=== PATIENT | female | born 1990 | race Caucasian/White ===

== ENCOUNTER → 2016-11-28 | Outpatient (CLI) | payer OTHER ==
[2016-11-28 14:37] LABS: BASO # 0.1 K/mm3 (0.0-0.2); BASO % 0.9 % (0.0-1.0); EOS # 0.1 K/mm3 (0.0-0.50); EOS % 1.2 % (0.0-3.0); LARGE UNSTAINED CELL # 0.1 K/mm3 (0.0-0.4); LARGE UNSTAINED CELL % 1.7 % (0.0-4.0); LYMPH # 1.8 K/mm3 (1.5-6.5); LYMPH % 26.8 % (24.0-44.0); MEAN CORPUSCULAR HEMOGLOBIN 30.4 pg (27.0-33.0); MEAN CORPUSCULAR HGB CONC 33.5 g/dl (32.0-36.5); MEAN CORPUSCULAR VOLUME 90.7 fl (80.0-96.0); MONO # 0.3 K/mm3 (0.0-0.8); MONO % 4.8 % (0.0-5.0); NEUTROPHILS # 4.4 K/mm3 (1.8-7.7); NEUTROPHILS % 64.6 % (36.0-66.0); PLATELET COUNT, AUTOMATED 288 k/mm3 (150-450); RED CELL DISTRIBUTION WIDTH 12.3 % (11.5-14.5); WHITE BLOOD COUNT 6.7 K/mm3 (4.0-10.0)
[2016-11-28 15:10] LABS: ALBUMIN 3.9 GM/DL (3.2-5.2); ALBUMIN/GLOBULIN RATIO 1.18 (1.00-1.93); ALKALINE PHOSPHATASE 88 U/L (45-117); ALT/SGPT 27 U/L (12-78); ANION GAP 8 MEQ/L (8-16); AST/SGOT 15 U/L (15-37); BILIRUBIN,TOTAL 0.6 MG/DL (0.2-1.0); BLOOD UREA NITROGEN 12 MG/DL (7-18); CALCIUM LEVEL 9.3 MG/DL (8.5-10.1); CARBON DIOXIDE LEVEL 27 MEQ/L (21-32); CHLORIDE LEVEL 106 MEQ/L (98-107); GLOMERULAR FILTRATION RATE > 60.0 (>60); GLUCOSE, FASTING 85 MG/DL (70-105); POTASSIUM SERUM 4.8 MEQ/L (3.5-5.1); SODIUM LEVEL 141 MEQ/L (136-145); TOTAL PROTEIN 7.2 GM/DL (6.4-8.2)
== END ==
LOC: M LRY 11:28
PROVIDERS: ATTEND Family Medicine
DX: N20.0 Calculus of kidney (principal)

== ENCOUNTER → 2017-01-05 | Outpatient (REF) | payer OTHER ==
[2017-01-05 19:46] LABS: CONTROL LINE UCG INT CTR LINE PRESENT
== END ==
LOC: M SMT 17:20
PROVIDERS: ATTEND Nurse Practitioner Family
DX: R10.9 Unspecified abdominal pain (principal)

== ENCOUNTER → 2017-01-16 | Outpatient (CLI) | payer OTHER ==
--- NOTE | 2017-01-16 23:15 | REP ---
Clinical: Left flank pain. Comparison: None. Findings: Evaluation of the urinary tract system demonstrates eight 2 mm nonobstructing right renal calculus and 1 mm nonobstructing left renal calculus without evidence for hydroureteronephrosis or perinephric stranding. A small extra renal pelvis to the left kidney is suggested. No obvious cystic or mass lesions are appreciated. The bilateral ureters are normal caliber and without obstructing calculus. The bladder is relatively collapsed but normal in appearance. Liver, spleen, pancreas, gallbladder, and bilateral adrenal glands are normal for noncontrast evaluation. The enteric system is without obstruction or acute inflammatory process and a normal terminal ileum and appendix are identified in the right lower quadrant. Pelvis demonstrates collapsed normal bladder and age-appropriate uterus. The ovaries demonstrate bilateral cysts/follicles measuring up to 2.9 cm in the left ovary and 2.4 cm in the right ovary which may be related to patient's symptoms. No pelvic fluid or ascites. No free air. No obvious adenopathy. Dominant noted without aneurysm. Musculoskeletal structures are intact. Impression: 1. There are 2 mm nonobstructing right and 1 mm nonobstructing left renal calculi without further evidence for obstructive uropathy or urinary tract pathology by noncontrast evaluation. 2. Bilateral ovarian cysts measuring up to 2.9 cm in left ovary are likely physiologic, but possibly related to patient's symptoms. Signed by Rinku Maria MD 01/16/2017 11:06 P
== END ==
LOC: M RAD 17:09
PROVIDERS: ATTEND Nurse Practitioner Family
DX: R10.9 Unspecified abdominal pain (principal)

== ENCOUNTER → 2018-01-21 | Outpatient (REF) | payer OTHER | LOC: M SFHCLERA 01-22 11:54 | DX: R30.0 Dysuria (principal) ==

== ENCOUNTER 2018-03-24 11:01 | Outpatient (CLI) | payer OTHER ==
[2018-03-24 12:14] LABS: HEMATOCRIT 33.4 % (36.0-47.0); HEMOGLOBIN 11.8 g/dl (12.0-15.5); MEAN CORPUSCULAR HEMOGLOBIN 31.1 pg (27.0-33.0); MEAN CORPUSCULAR HGB CONC 35.3 g/dl (32.0-36.5); MEAN CORPUSCULAR VOLUME 88.1 fl (80.0-96.0); PLATELET COUNT, AUTOMATED 271 10^3/uL (150-450); RED BLOOD COUNT 3.79 10^6/uL (4.00-5.40); RED CELL DISTRIBUTION WIDTH 13.2 % (11.5-14.5); WHITE BLOOD COUNT 14.4 10^3/uL (4.0-10.0)
[2018-03-24 12:23] LABS: TOTAL PROTEIN,RANDOM URINE 24.6 MG/DL (0.0-12.0)
[2018-03-24 12:44] LABS: ALBUMIN 2.3 GM/DL (3.2-5.2); ALBUMIN/GLOBULIN RATIO 0.68 (1.00-1.93); ALKALINE PHOSPHATASE 169 U/L (45-117); ALT/SGPT 17 U/L (12-78); ANION GAP 9 MEQ/L (8-16); AST/SGOT 14 U/L (7-37); BILIRUBIN,TOTAL 0.3 MG/DL (0.2-1.0); BLOOD UREA NITROGEN 6 MG/DL (7-18); CALCIUM LEVEL 8.1 MG/DL (8.5-10.1); CARBON DIOXIDE LEVEL 26 MEQ/L (21-32); CHLORIDE LEVEL 108 MEQ/L (98-107); CREATININE FOR GFR 0.79 MG/DL (0.55-1.30); GLOMERULAR FILTRATION RATE > 60.0 (>60); GLUCOSE, FASTING 110 MG/DL (70-100); LDH LACTATE DEHYDROGENASE 209 U/L (84-246); POTASSIUM SERUM 3.3 MEQ/L (3.5-5.1); SODIUM LEVEL 143 MEQ/L (136-145); TOTAL PROTEIN 5.7 GM/DL (6.4-8.2); URIC ACID 6.5 MG/DL (2.6-6.0)
== END 2018-03-24 12:53 | disposition home or self-care (01) ==
LOC: M LDO 11:01
DX: O26.893 Other specified pregnancy related conditions, third trimester (principal); Z3A.41 41 weeks gestation of pregnancy
CPT/HCPCS: 59025

== ENCOUNTER 2018-03-24 19:14 | Inpatient (IN) | payer OTHER ==
[2018-03-24] MEDS: LR 1,000 ML IV (20:13)
[2018-03-24 20:29] LABS: HEMATOCRIT 36.2 % (36.0-47.0); HEMOGLOBIN 12.6 g/dl (12.0-15.5); MEAN CORPUSCULAR HGB CONC 34.8 g/dl (32.0-36.5); MEAN CORPUSCULAR VOLUME 89.2 fl (80.0-96.0); PLATELET COUNT, AUTOMATED 282 10^3/uL (150-450); RED BLOOD COUNT 4.06 10^6/uL (4.00-5.40); RED CELL DISTRIBUTION WIDTH 13.2 % (11.5-14.5); WHITE BLOOD COUNT 16.4 10^3/uL (4.0-10.0)
[2018-03-24] MEDS: hydroCHLOROthiazide 25 MG TAB PO (21:05)
[2018-03-24] MEDS ORDERED: FENTANYL 2MCG/ML ROPIVACAINE 0.2% IN 0.9% NACL 200ML IVBAG As Ordered (21:27)
[2018-03-24] MEDS: LACTATED RINGER'S 1000 ML IV (22:35)
[2018-03-24] MEDS ORDERED: FENTANYL/ROPIVACAINE/NACL BAG 200 ML EPIDURAL (23:15)
[2018-03-24] MEDS ORDERED: NALOXONE INJ 0.4 MG/1 ML VIAL (J2310) IV (23:15)
[2018-03-24] MEDS ORDERED: EPIDURAL/PCA KEYS XX (23:15)
[2018-03-24] MEDS ORDERED: ePHEDrine SULFATE 25 MG/5 ML(5MG/ML) SYRINGE IV (23:15)
[2018-03-24] MEDS ORDERED: ONDANSETRON 4MG/2ML VIAL (J2405) IV (23:15)
[2018-03-24] MEDS ORDERED: diphenhydrAMINE INJ 50MG/ML VIAL (J1200) IV (23:15)
[2018-03-24] MEDS ORDERED: EPIDURAL COMMENT XX (23:15)
[2018-03-24] MEDS ORDERED: LACTATED RINGER'S 1000 ML IV (23:15)
[2018-03-24] MEDS ORDERED: REFRIGERATOR IV KEYS XX (23:15)
[2018-03-24] MEDS ORDERED: OXYTOCIN 30 UNITS IN 0.9% NaCl 500ML IV BAG (J2590) As Ordered (23:39)
[2018-03-25 01:55] LABS: CORD GAS ABE A -0.5; CORD GAS O2 SAT A 20.7 %; CORD GAS PCO2 A 62.2 mmHg; CORD GAS PH A 7.272 UNITS; CORD GAS PO2 A 13.5 mmHg; CORD GAS SBC A 22.1 MEQ/L
[2018-03-25 01:56] LABS: CORD GAS HCO3 V 21.8 MEQ/L; CORD GAS O2 SAT V 72.2 %; CORD GAS PCO2 V 38.7 mmHg; CORD GAS PH V 7.369 UNITS; CORD GAS PO2 V 31.6 mmHg; CORD GAS SBC V 21.3 MEQ/L
[2018-03-25] MEDS ORDERED: OXYTOCIN DRIP 30 UNITS in APPROPRIATE DILUENT 1 EA IV (01:59)
[2018-03-25] MEDS ORDERED: METHYLERGONOVINE MALEATE 0.2 MG TAB PO (02:00)
[2018-03-25] MEDS ORDERED: MOM 30ML SUSPENSION UDC PO (02:00)
[2018-03-25] MEDS ORDERED: ANUSOL HC CREAM 30GM TOP (02:00)
[2018-03-25] MEDS ORDERED: RHOGAM 300 MCG (1500 IU) INJ (J2790) IM (02:00)
[2018-03-25] MEDS ORDERED: MEASLES,MUMPS,RUBELLA VACCINE INJ (MMR-II) (90707) SC (02:00)
[2018-03-25] MEDS ORDERED: DIBUCAINE 1% OINTMENT 30GM TOP (02:00)
[2018-03-25] MEDS ORDERED: OXYTOCIN INJ 10 UNITS/ML VIAL (J2590) IV (02:00)
[2018-03-25] MEDS ORDERED: DOCUSATE SODIUM 100 MG CAP PO (02:00)
[2018-03-25] MEDS: IBUPROFEN 800 MG TAB PO ×2 (02:40→14:42)
[2018-03-25] MEDS ORDERED: OXYTOCIN INJ 10 UNITS/ML VIAL (J2590) As Ordered (04:23)
[2018-03-25] MEDS: hydroCHLOROthiazide 25 MG TAB PO (09:04)
[2018-03-25] MEDS: PRENATAL VITAMINS CHEWABLE TABLET PO (09:04)
[2018-03-25] MEDS: ACETAMINOPHEN 500 MG TAB PO (23:35)
[2018-03-26 06:24] LABS: HEMATOCRIT 35.9 % (36.0-47.0); HEMOGLOBIN 12.4 g/dl (12.0-15.5); MEAN CORPUSCULAR HGB CONC 34.5 g/dl (32.0-36.5); MEAN CORPUSCULAR VOLUME 89.8 fl (80.0-96.0); PLATELET COUNT, AUTOMATED 254 10^3/uL (150-450); RED CELL DISTRIBUTION WIDTH 13.2 % (11.5-14.5); WHITE BLOOD COUNT 13.2 10^3/uL (4.0-10.0)
[2018-03-26] MEDS: hydroCHLOROthiazide 25 MG TAB PO (08:48)
[2018-03-26] MEDS: PRENATAL VITAMINS CHEWABLE TABLET PO (08:49)
[2018-03-27 00:07] LABS: T PALLIDUM ANTIBODIES Negative (Negative)
== END 2018-03-26 14:10 | disposition home or self-care (01) | DRG 775 ==
LOC: M LDI 19:14 → M OBS 03-25 03:15
PROVIDERS: Obstetrics & Gynecology
PROC: 10E0XZZ Delivery of Products of Conception, External Approach (ICD-10-PCS; principal; 2018-03-24)
DX: O48.0 Post-term pregnancy (principal); Z37.0 Single live birth; Z3A.41 41 weeks gestation of pregnancy; E83.52 Hypercalcemia; Z79.899 Other long term (current) drug therapy; Z88.1 Allergy status to other antibiotic agents; O99.284 Endocrine, nutritional and metabolic diseases complicating childbirth